=== PATIENT | female | born 1955 | race Caucasian/White ===

== ENCOUNTER 2017-03-13 13:33 | Outpatient (CLI) | payer MEDICARE ==
--- NOTE | 2017-03-13 15:17 | ULT ---
LEFT BREAST ULTRASOUND AND RIGHT BREAST ULTRASOUND AND DIAGNOSTIC MAMMOGRAM: COMPARISON: 03/01/17, 10/22/08. FINDINGS: Bilateral ML, MLO, and CC views of the breasts as well as spot compression views were performed. Sc attered fibroglandular breast tissue is present. The asymmetries seen in the bilateral breasts appe ar to be slightly dispersed with compression and may or may not still persist with additional imagin g. These lesions are definitely less conspicuous with spot compression imaging. No suspicious clus tered microcalcifications are seen. Interpretation of this mammogram was performed with the assistance of computer-aided detection. Ultrasound of the bilateral breasts was performed. In the 1:00 to 3:00 position of the right breast , no suspicious mass or shadowing is seen. In the 8:00 to 10:00 position of the left breast, no joel picious mass or shadowing is seen. IMPRESSION: The focal asymmetries in bilateral breasts likely represent focally asymmetric superimposed breast p arenchyma. BI-RADS category 2 - benign findings. Annual screening mammography is recommended. POS: [facility]
== END 2017-03-13 13:34 | disposition home or self-care (01) ==
LOC: MAMMO 13:33
DX: R92.2 Inconclusive mammogram (principal)
CPT/HCPCS: 76642 ×2; G0204; 77066

== ENCOUNTER 2019-03-30 14:46 | Outpatient (CLI) | payer MEDICARE ==
--- NOTE | 2019-03-30 15:28 | MMO ---
Bilateral MAMMO Bilat Screen [facility]. CLINICAL HISTORY: Patient is 63 years old and is seen for screening. The patient has the following family history of breast cancer: mother, malignant (generic). The patient has no personal history of cancer. VIEWS: The views performed were: bilateral craniocaudal with tomosynthesis and bilateral mediolateral oblique with tomosynthesis. This study has been interpreted with the assistance of computer-aided detection. MAMMOGRAM FINDINGS: There are scattered fibroglandular densities. There are no suspicious masses, suspicious calcifications, or new areas of architectural distortion. IMPRESSION: THERE IS NO MAMMOGRAPHIC EVIDENCE OF MALIGNANCY. A ROUTINE FOLLOW-UP MAMMOGRAM IN 1 YEAR IS RECOMMENDED. THE RESULTS OF THIS EXAM WERE SENT TO THE PATIENT. ACR BI-RADS Category 1 - Negative MAMMOGRAPHY NOTE: 1. A negative mammogram report should not delay a biopsy if a dominant of clinically suspicious mass is present. 2. Approximately 10% to 15% of breast cancers are not detected by mammography. 3. Adenosis and dense breasts may obscure an underlying neoplasm. Reported by: EMILY HIGGINBOTHAM MD Electonically Signed: [id number]
== END 2019-03-30 14:47 | disposition home or self-care (01) ==
LOC: BICMAMMO 14:46
PROVIDERS: ATTEND Physician Assistant
DX: Z12.31 Encounter for screening mammogram for malignant neoplasm of breast (principal); Z80.3 Family history of malignant neoplasm of breast
CPT/HCPCS: 77063; 77067

== ENCOUNTER 2020-11-03 10:42 | Outpatient (CLI) | payer MEDICARE | END 2020-11-03 10:43 | disposition home or self-care (01) | LOC: PET 10:42 | PROVIDERS: ATTEND Psychiatry & Neurology Neurology | DX: G30.0 Alzheimer's disease with early onset (principal) | CPT/HCPCS: 78803; A9552 ==